=== PATIENT | female | born 1990 | race Two or more races ===

== ENCOUNTER 2016-09-01 21:48 | Emergency (ER) | payer BC ==
[~2016-09-01] VITALS: Ht 144.8 cm; Wt 61.2 kg
[2016-09-01 22:10] VITALS: BP 118/75
[2016-09-01] MEDS ORDERED: Ketorolac 60mg Inj IM ONE (22:30)
[2016-09-01 22:50] LABS: APPEARANCE,URINE SLIGHTLY CLOUDY; KETONES,URINE NEGATIVE (NEGATIVE); LEUKOCYTE ESTERASE ,URINE 3+ (NEGATIVE); NITRITE,URINE POSITIVE (NEGATIVE); PH,URINE 7 (4.5-8.0); PROTEIN,URINE NEGATIVE (NEGATIVE); UROBILINOGEN,URINE NORMAL MG/DL (0.0-1.0)
[2016-09-01 22:55] LABS: BACTERIA,URINE MANY /HPF; RBC,URINE 0-2 /HPF (0 - 2); SQUAMOUS EPITHELIAL CELL,UR OCCASIONAL /LPF (NONE/OCC); WBC,URINE 30-40 /HPF (0 - 2)
[2016-09-01 23:15] VITALS: BP 120/78
[2016-09-02] MEDS ORDERED: Cephalexin 500mg cap ORAL ONE (00:15)
[2016-09-02] MEDS ORDERED: KEFLEX500 MG ORAL (00:20)
[2016-09-02] MEDS ORDERED: IBUPROFEN600 MG ORAL (00:20)
[2016-09-02 01:00] VITALS: BP 122/78
--- NOTE | 2016-09-02 04:21 | Emergency Room Report ---
History of Present Illness General Chief Complaint: Pelvic Pain Source: Patient Present Illness HPI Patient presents with complaints of left lower suprapubic discomfort Patient reports that she has a history of endometriosis and however this pain appears to be different Denies any vaginal discharge denies any chest pain or shortness of breath Denies any back or flank pain denies any fevers or chills Patient is not sexually active at this time Reports of the pain is 8/10 localized to the region as above Patient reports that she is in a rehabilitation facility at this time Allergies: Coded Allergies: LATEX (Verified Allergy, Unknown, 09/01/16) RISPERIDONE (Verified Allergy, Unknown, 09/01/16) Patient History Past Medical History: see triage record Pertinent Family History: none Last Menstrual Period: 08/25/16 Now: No : 0 Para: 0 Reviewed Nursing Documentation: PMH: Agreed, PSxH: Agreed Review of Systems All Other Systems: negative except mentioned in HPI Physical Exam Vital Signs Date Time Temp Pulse Resp B/P Pulse Ox O2 Delivery O2 Flow Rate FiO2 09/01/16 21:55 98.1 100 16 118/75 96 Room Air Sp02 EP Interpretation: reviewed, normal General Appearance: mild distress - Appears uncomfortabe Head: normocephalic, atraumatic Eyes: bilateral eye EOMI, bilateral eye PERRL ENT: hearing grossly normal, normal pharynx, TMs + canals normal, uvula midline Neck: full range of motion, supple, no meningismus, no bony tend Respiratory: lungs clear, normal breath sounds, no rhonchi, no respiratory distress, no retraction, no accessory muscle use Cardiovascular #1: normal peripheral pulses, regular rate, rhythm, no edema, no gallop, no JVD, no murmur Gastrointestinal: normal bowel sounds, no mass, no organomegaly, non-distended , no guarding, no hernia, no pulsatile mass, no rebound, other - The discomfort is fairly low in the left lower abdomen especially over the suprapubic area, Genitourinary: no CVA tenderness Musculoskeletal: normal inspection Neurologic: oriented x3, responsive, lip cutter III-XII nml as tested, motor strength/ tone normal, sensory intact Psychiatric: mood/affect normal Skin: normal color, no rash, warm/dry, palpation normal Lymphatic: normal inspection, no adenopathy Medical Decision Making Diagnostic Impression: Primary Impression: uti ER Course Given the location of the pain in the significant discomfort ultrasounds obtained to rule out an ovarian torsion This was negative Patient is show evidence of UTI is treated appropriately I did not feel the patient had findings in line with PID Given the lack of any sexual contact and is stable for close outpatient followup Labs Test 09/01/16 22:00 Urine Color Pale yellow Urine Appearance Slightly cloudy Urine pH 7 (4.5-8.0) Urine Specific [place] 1.010 (1.005-1.035) Urine Protein Negative (NEGATIVE) Urine Glucose (UA) Negative (NEGATIVE) Urine Ketones Negative (NEGATIVE) Urine Occult Blood Negative (NEGATIVE) Urine Nitrite Positive (NEGATIVE) Urine Bilirubin Negative (NEGATIVE) Urine Urobilinogen Normal MG/DL (0.0-1.0) Urine Leukocyte Esterase 3+ (NEGATIVE) Urine RBC 0-2 /HPF (0 - 2) Urine WBC 30-40 /HPF (0 - 2) Urine Squamous Epithelial Cells Occasional /LPF Urine Bacteria Many /HPF (NONE) Urine HCG, Qualitative Negative CT/MRI/US Diagnostic Results CT/MRI/US Diagnostic Results : Impression Pelvic ultrasound: No evidence of torsion Last Vital Signs Date Time Temp Pulse Resp B/P Pulse Ox O2 Delivery O2 Flow Rate FiO2 09/02/16 01:00 98.4 96 15 122/78 100 Room Air Disposition: HOME, SELF-CARE Condition: Improved Scripts Cephalexin* (KEFLEX*) 500 Mg Capsule 500 MG ORAL Q6H, #40 CAP 0 Refills Prov: CONNOR SOSA D.O. 09/02/16 Ibuprofen* (MOTRIN*) 600 Mg Tablet 600 MG ORAL Q8H Y for For Pain, #30 TAB 0 Refills Prov: CONNOR SOSA D.O. 09/02/16 Referrals: NON PHYSICIAN (PCP) Patient Instructions: Urinary Tract Infection Additional Instructions: Patient is provided with the discharge instructions notified to follow up with primary doctor in the next 2-3 days otherwise return to the er with any worsening symptoms. Please note that this report is being documented using [employer] technology. This can lead to erroneous entry secondary to incorrect interpretation by the dictating instrument. CONNOR SOSA D.O. Sep 02, 2016 04:21
--- NOTE | 2016-09-02 11:53 | Diagnostic Imaging Report ---
Indication:Lower abdominal and pelvic pain Technique: Grayscale and duplex Doppler imaging of the pelvis performed utilizing a transabdominal scan and endovaginal scan. Comparison: None Findings: Study was limited. The endometrium is not seen. The uterus is 4.9 x 3.2 x 2.8 cm. Both ovaries show Doppler evidence of blood flow. Right ovary 2.2 x 2.6 x 2.2 CM. Left ovary 2.1 x 2.1 x 2.6 cm. Impression: Limited evaluation due to bowel gas.
== END 2016-09-02 01:00 | disposition home or self-care (01) ==
LOC: EMR 22:10
DX: N39.0 Urinary tract infection, site not specified (principal); Z91.040 Latex allergy status; Z88.8 Allergy status to other drugs, medicaments and biological substances
CPT/HCPCS: 76856; 81003; 81025; 87086; 87181; 96372; 99284